=== PATIENT | female | born 1985 | race Caucasian/White ===

== ENCOUNTER 2018-06-12 11:49 | Emergency (ER) | payer OTHER, SELFPAY ==
[2018-06-12 11:55] VITALS: BP 131/84; PULSE 80; RESP 20; TEMP 37.6; O2SAT 99
--- NOTE | 2018-06-12 12:32 | ED_ITS ---
HPI - Skin/Abscess/Foreign Bdy General Chief complaint: Skin/Abscess/Foreign Body Stated complaint: facial swelling Time Seen by Provider: 06/12/18 12:32 Source: patient Mode of arrival: ambulatory Limitations: no limitations History of Present Illness HPI narrative: Patient is a 33-year-old female here for evaluation of a possible infection around her left eye. She went to the walk-in clinic prior to arrival here in the emergency department and was sent here for further evaluation. Patient states that she 1st noticed a little ?pimple? on the nasal portion of her right eye. She states she scratched this area. Since then she has had redness and swelling. She does wear contacts and does have her contacts in today. 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 Has not had no other symptoms since then. No trauma. No foreign body sensation. Related Data Previous Rx's Medication Instructions Recorded sulfamethoxazole-trimethoprim 1 tab PO BID 7 Days #14 tab 06/12/18 [Bactrim DS] Allergies Allergy/AdvReac Type Severity Reaction Status Date / Time No Known Drug Allergies Allergy Unverified 03/29/18 14:35 Review of Systems Constitutional Denies fever(s) and Denies headache(s) Eyes Denies blurry vision, Denies diplopia, Denies eye discharge, Denies dry eyes, Reports irritation, Denies itchy eyes, Denies eye pain, Denies photophobia and Denies tunnel vision Comments: Redness around the left eye ENT Ears, Nose, Mouth, and Throat: Denies vertigo, Denies otalgia, Denies headache(s ), Denies lip swelling, Denies neck mass, Denies neck pain, Denies tinnitus, Denies sinus pain, Denies sinus pressure and Reports sore throat Cardiovascular Denies chest pain and Denies dyspnea Respiratory Denies dyspnea Gastrointestinal Gastrointestinal: Denies abdominal pain, Denies nausea and Denies vomiting Musculoskeletal Denies neck pain Integumentary/Breasts Comments: Redness around the left eye Neurologic Denies vertigo and Denies headache(s) Hematologic/Lymphatic Denies easy bleeding Allergic/Immunologic Denies itchy eyes and Denies lip swelling PFSH Medical History Healthy adult (Acute) Surgical History No pertinent past surgical history (Acute) Social History Smoking Status: Never smoker Exam Initial Vital Signs Initial Vital Signs: Vital Signs Temperature 99.6 F 06/12/18 11:55 Pulse Rate 80 06/12/18 11:55 Respiratory Rate 20 06/12/18 11:55 Blood Pressure 131/84 06/12/18 11:55 Pulse Oximetry 99 06/12/18 11:55 Const General: cooperative, healthy appearing, comfortable, well developed, well groomed and No acute distress Orientation: alert, awake and oriented x3 HENMT Head: normal to inspection and normocephalic Eyes Pupils: PERRL EOM: EOM intact bilaterally Other: Patient does have redness from the nasal aspect to the midportion of the left eye with some swelling of the upper eyelid. Some redness lower eyelid without any swelling. No drainage. No pustules. Resp Effort & Inspection: normal respiratory effort Skin Other: see eye section for skin description Neuro General: alert and awake Extrem General: normal to inspection and capillary refill normal Course Vital Signs - 8 hr 06/12/18 11:55 Temperature 99.6 F Pulse Rate 80 Respiratory Rate 20 Blood Pressure 131/84 Pulse Oximetry 99 MDM - Skin/Abscess/Foreign Bdy MDM Narrative Medical decision making narrative: Patient does have her contact lens in today. Extraocular muscles are intact. No photophobia. No proptosis. Low suspicion for orbital cellulitis. Will treat with antibiotics. Will hold on further workup for now. Patient was given return precautions. She expressed understanding and agreement with plan. Discharge Plan Departure Patient Disposition: Home Clinical Impression: Preseptal cellulitis of left eye Instructions: DI for Cellulitis -- Adult Activity Restrictions/Additional Instructions: Take the antibiotics as directed. I do recommend that you remove the contact lens. Return to the emergency department for any new or worsening symptoms Prescriptions: New sulfamethoxazole-trimethoprim [Bactrim DS] 800-160 mg tablet 1 tab PO BID 7 Days Qty: 14 RF: 0
--- NOTE | 2018-06-12 12:51 | PC.NURSE ---
noted pimple couple of days ago, noted swelling left upper eye lid today, denies visual changes, with soreness on left upper lid, denies fever or vomiting. not up to date with tetanus, offered, pt deferred. mother at bs.
== END 2018-06-12 12:59 | disposition home or self-care (01) ==
PROVIDERS: Emergency Provider Emergency Medicine; PCP Specialist
DX: L03.213 Periorbital cellulitis (principal)
CPT/HCPCS: 99283

== ENCOUNTER 2019-08-10 10:27 | Emergency (ER) | payer OTHER, SELFPAY ==
[2019-08-10 10:31] VITALS: PULSE 82; RESP 18; TEMP 36.7; O2SAT 97
--- NOTE | 2019-08-10 11:35 | PC.NURSE ---
pt called to let me know, she stepped out to use cannabis and her pain is better.
[2019-08-10 11:43] LABS: Appearance Urine UA SL CLOUDY; Bilirubin Urine UA NEGATIVE (NEGATIVE); Color Urine UA YELLOW; Glucose Urine UA NEGATIVE (Negative); Ketones Urine UA NEGATIVE (NEGATIVE); Leukocyte Esterase Urine UA 1+ (NEGATIVE); Nitrite Urine UA POSITIVE (Negative); Occult Blood Urine UA 3+ (Negative); Protein Urine UA NEGATIVE (Negative); Specific Gravity Urine UA <=1.005 (1.000-1.035); Urobilinogen Urine UA 0.2 E.U./dL (0.2)
[2019-08-10 12:02] LABS: Bacteria Urine Many (>30); RBC Urine 1-5/HPF (0-5/HPF); Squamous Epithelial Cell Urine 5-10 /HPF (0-5/HPF); WBC Urine 5-10/HPF (0-5/HPF); pH Urine UA 6.5 (4.5-8.0)
[2019-08-10 12:03] LABS: Culture Indicated Urine Cult Not Indicated
[2019-08-10] MEDS: PHENAZOPYRIDINE 100 MG TABLET 200 MG PO (13:03)
--- NOTE | 2019-08-10 13:08 | ED_ITS ---
HPI - Nausea/Vomiting/Diarrhea General Chief complaint: Nausea/Vomiting/Diarrhea Stated complaint: diarrhea post-traveling, severe abdominal pain Time Seen by Provider: 08/10/19 13:08 Source: patient Mode of arrival: Ambulatory Limitations: no limitations History of Present Illness HPI Narrative: 34-year-old female comes to the emergency department with complaint frequency, dysuria ,urgency. Patient states she has some lower pelvic discomfort she denies any flank pain. Patient has not had fevers. She just returned from [facility] about 2 days ago and just before she got on the plane started having diarrhea that has not been black or bloody. The diarrhea started to taper off and she has not been able have a bowel movement in the department. She had 1 episode of vomiting yesterday morning but none since. She denies any other symptoms. No other vaginal bleeding or discharge. Patient denies any other medical problems. Related Data Previous Rx's Medication Instructions Recorded nitrofurantoin macrocrystal 100 mg PO BID #10 cap 08/10/19 phenazopyridine [Pyridium] 200 mg PO Q8H PRN #6 tab 08/10/19 Allergies Allergy/AdvReac Type Severity Reaction Status Date / Time No Known Drug Allergies Allergy Unverified 06/22/19 08:18 Review of Systems Review of Systems ROS Unobtainable: All systems reviewed & are unremarkable except as noted in HPI and below Patient History Medical History Healthy adult (Acute) Surgical History No pertinent past surgical history (Acute) Social History Smoking Status: Never smoker Smoking Status: Never smoker alcohol intake frequency: 0-2 drinks per day Substance Use Type: does not use Exam Narrative Exam Narrative: GENERAL: Alert and oriented x three, the pill in mild distress. HEENT: Head normocephalic, atraumatic, EOMI, pupils reactive, face symmetric, moist mucous membranes NECK: Supple, full range of motion CARDIOVASCULAR: Regular rate and rhythm without murmurs, rubs or gallops. RESPIRATORY: Breath sounds equal bilaterally, no wheezes rales or rhonchi. ABDOMEN: Soft, mild suprapubic tenderness. Normoactive bowel sounds all 4 quadrants. No guarding or rebound, rigidity, no mass, nondistended. : No CVA tenderness EXTREMITIES: Normal range of motion, no clubbing or edema. Neurovascularly intact NEUROLOGICAL: Cranial nerves II through XII grossly intact. Moving all extrem ities SKIN: Warm, dry, no petechiae, no rashes or lesions. Initial Vital Signs Initial Vital Signs: Vital Signs Temperature 98.1 F 08/10/19 10:31 Pulse Rate 82 08/10/19 10:31 Respiratory Rate 18 08/10/19 10:31 Pulse Oximetry 97 08/10/19 10:31 Course Orders Ordered: ED Orders 08/10/19 11:30 Test Urine Stat UA Complete [Urinalysis and Microscopic] Stat Urine Culture Stat Discontinued Medications Phenazopyridine HCl (Pyridium) 200 mg PO NOW ONE Stop: 08/10/19 12:58 Last Admin: 08/10/19 13:03 Dose: 200 mg Documented by: TEDDY Vital Signs Vital signs: Vital Signs - 8 hr 08/10/19 13:51 Pulse Rate 72 Respiratory Rate 18 Blood Pressure [Left Arm] 108/72 Pulse Oximetry 99 MDM - Nausea/Vomiting/Diarrhea Lab Data Attestation: I reviewed the patient's lab results. Labs: Lab Results 08/10/19 08/10/19 Range/Units 11:30 11:30 Urine Color Yellow Urine Appearance Sl cloudy Urine pH 6.5 (4.5-8.0) Ur Specific [place] <=1.005 (1.000-1.035) Urine Protein Negative (Negative) Urine Glucose (UA) Negative (Negative) g/dL Urine Ketones Negative (NEGATIVE) Urine Occult Blood 3+ H (Negative) Urine Nitrate Positive H (Negative) Urine Bilirubin Negative (NEGATIVE) Urine Urobilinogen 0.2 (0.2) E.U./dL Ur Leukocyte Esterase 1+ H (NEGATIVE) Urine RBC 1-5/hpf (0-5/HPF) Urine WBC 5-10/hpf H (0-5/HPF) Ur Squamous Epith Cells 5-10 /hpf H (0-5/HPF) Urine Bacteria Many (>30) H (None) Ur Culture Indicated? Cult not indicated Urine Test Negative (Negative) MDM Narrative Medical decision making narrative: UA shows nitrate blood and leukocyte esterase with many bacteria. Patient has not been able to give a stool sample. Urine is negative. Discussed watchful waiting with her diarrhea she can try Imodium or Pepto which has been found to be helpful in some studies for traveler's diarrhea. If she continues to have diarrhea over the next several days or black or bloody stool she should continue for testing. Patient does not any symptoms of pyelonephritis started on Pyridium and oral antibiotic. Discharge Plan Departure Patient Disposition: Home Clinical Impression: UTI (urinary tract infection) Discharge Date/Time: 08/10/19 13:45 Instructions: DI for Urinary Tract Infection (UTI) Activity Restrictions/Additional Instructions: Follow-up with your physician if your symptoms are not improving after 3-5 days of antibiotics. Take pyridium as needed for bladder spasm. Take antibiotics until gone. Return to the ER for having fevers greater 100.4 F, new abdominal pain, flank pain, persistent vomiting, lightheadedness or passing-out, black or bloody stools or other new or concerning symptoms. Prescriptions: New phenazopyridine [Pyridium] 200 mg tablet 200 mg PO Q8H PRN (Reason: pain) Qty: 6 RF: 0 nitrofurantoin macrocrystal 100 mg capsule 100 mg PO BID Qty: 10 RF: 0 Referrals: Omayra Sorenson MD [Primary Care Provider] -
[2019-08-10 13:24] LABS: Pregnancy Test Urine Negative (Negative)
[2019-08-10 13:51] VITALS: BP 108/72; PULSE 72; RESP 18; O2SAT 99
== END 2019-08-10 13:45 | disposition home or self-care (01) ==
PROVIDERS: Emergency Provider Emergency Medicine; PCP Specialist
DX: N39.0 Urinary tract infection, site not specified (principal)
CPT/HCPCS: 81001; 81025; 87077; 87086; 87186; 99283